=== PATIENT | male | born 1985 | race Caucasian/White ===

== ENCOUNTER 2018-05-26 19:43 | Emergency (ER) | payer SELFPAY ==
[~2018-05-26] VITALS: Ht 175.3 cm; Wt 86.4 kg
[~2018-05-26 19:43] MED LIST: NOCURR
[2018-05-26] MEDS ORDERED: IBUPROFEN 600 MG TABLET PO ONE (22:15)
[2018-05-26] MEDS ORDERED: DEXAMETHASONE 4 MG TABLET PO ONE (22:15)
[2018-05-26] MEDS ORDERED: PENICILLIN G BENZATHINE LA 1,200,000 UNITS/2 ML SYRINGE IM ONE (23:30)
[2018-05-26 23:37] VITALS: BP 134/80
== END 2018-05-26 23:42 | disposition home or self-care (01) ==
LOC: EMS 19:43
DX: J02.9 Acute pharyngitis, unspecified (principal); F17.210 Nicotine dependence, cigarettes, uncomplicated
CPT/HCPCS: 87430; 96372; 99283; J0561; J8540

== ENCOUNTER 2024-01-26 10:36 | Emergency (ER) | payer MEDICAID ==
[~2024-01-26] VITALS: Ht 172.7 cm; Wt 95.5 kg
[2024-01-26 10:47] VITALS: BP 132/83; PULSE 98; RESP 18; TEMP 98.8; O2SAT 99
[2024-01-26 11:30] LABS: COVID AG,FIA SOURCE NASAL SWAB
[2024-01-26 12:07] LABS: SARS-COV2 (COVID) ANTIGEN,FIA Negative (Negative)
[2024-01-26 12:08] LABS: INFLUENZA TYPE A NEGATIVE FOR TYPE A (NEGATIVE); INFLUENZA TYPE B NEGATIVE FOR TYPE B (NEGATIVE)
[2024-01-26 12:24] LABS: RAPID GROUP A STREP NEGATIVE (NEGATIVE)
[2024-01-26] MEDS: ACETAMINOPHEN 325 MG TABLET PO ONE (13:01)
[2024-01-26] MEDS: DEXAMETHASONE 4 MG TABLET PO ONE (13:02)
[2024-01-26] MEDS: IBUPROFEN 400 MG TABLET PO ONE (13:02)
== END 2024-01-26 13:11 | disposition home or self-care (01) ==
LOC: EMS 10:36
DX: J02.9 Acute pharyngitis, unspecified (principal); R09.81 Nasal congestion; F17.210 Nicotine dependence, cigarettes, uncomplicated
CPT/HCPCS: 99284; 87426; 87430; 87804; J8540; Z7502; Z7610

== ENCOUNTER 2024-03-12 14:12 | Emergency (ER) | payer MEDICAID, OTHER ==
[~2024-03-12] VITALS: Ht 170.2 cm; Wt 97.7 kg
[~2024-03-12 14:12] MED LIST changes: -NOCURR; +RISP3TAB77 PO
[2024-03-12 14:41] VITALS: TEMP 98.7
[2024-03-12 15:04] LABS: COVID AG,FIA SOURCE NASAL SWAB
[2024-03-12 15:31] LABS: SARS-COV2 (COVID) ANTIGEN,FIA Negative (Negative)
[2024-03-12 15:33] LABS: INFLUENZA TYPE A NEGATIVE FOR TYPE A (NEGATIVE); INFLUENZA TYPE B NEGATIVE FOR TYPE B (NEGATIVE)
[2024-03-12 15:37] LABS: BASOPHILS % (AUTO) 0.2 % (0.0-2.0); EOSINOPHILS % (AUTO) 0.2 % (1.0-6.0); HEMATOCRIT 47.2 % (41-53); HEMOGLOBIN 15.6 g/dL (13.5-17.5); LYMPHOCYTES # (AUTO) 0.7 K/uL (1.0-4.8); LYMPHOCYTES % (AUTO) 5.9 % (22.0-44.0); MEAN CORPUSCULAR HEMOGLOBIN 29.1 pg (26.0-34.0); MEAN CORPUSCULAR HGB CONC 33.2 G/dL (31.0-37.0); MEAN CORPUSCULAR VOLUME 88 fL (80-100); MONOCYTES # (AUTO) 0.5 K/uL (0.1-1.0); MONOCYTES % (AUTO) 4.9 % (2.0-9.0); NEUTROPHILS # (AUTO) 9.9 K/uL (1.8-7.7); PLATELET COUNT (AUTO) 200 K/uL (150-450); RED BLOOD CELL COUNT(AUTO) 5.37 MIL/uL (4.50-5.90); RED CELL DISTRIBUTION WIDTH 13.1 % (11.5-14.5); WHITE BLOOD COUNT (AUTO) 11.1 K/uL (4.5-11.0)
[2024-03-12 15:42] LABS: NEUTROPHILS % (AUTO) 88.8 % (40.0-70.0)
[2024-03-12 15:52] LABS: ANION GAP 8 mmol/L (8-16); CARBON DIOXIDE 27 mmol/L (22-29); CHLORIDE 102 mmol/L (98-107); CREATININE 0.95 mg/dL (0.60-1.30); GLUCOSE,RANDOM 117 mg/dL (70-110); POTASSIUM 4.4 mmol/L (3.5-5.1); SODIUM SERUM 137 mmol/L (136-145); UREA NITROGEN, BLOOD 8 mg/dL (7-18)
[2024-03-12 15:53] LABS: CALCIUM, TOTAL 8.3 mg/dL (8.8-10.5); GLOMERULAR FILTR. RATE CALC > 60 mL/min (>60)
[2024-03-12 15:55] LABS: TROPONIN I-HIGH SENSITIVITY 4 ng/L (<76)
[2024-03-12 15:58] LABS: ALANINE AMINOTRANSFERASE 48 U/L (12-78); ALBUMIN 3.7 g/dL (3.4-5.0); ALKALINE PHOSPHATASE 91 U/L (46-116); ASPARTATE AMINOTRANSFERASE 28 U/L (15-37); BILIRUBIN,TOTAL 0.5 mg/dL (0.1-1.0); TOTAL PROTEIN, SERUM 6.9 g/dL (6.4-8.2)
[2024-03-12] MEDS: LORazepam 1 MG TABLET PO ONE (16:00)
[2024-03-12] MEDS: SODIUM CHLORIDE 0.9% 1,000 ML IV ONE ×2 (16:00→17:47)
[2024-03-12] MEDS: ACETAMINOPHEN 500 MG TABLET PO ONE (16:00)
[2024-03-12 16:04] LABS: PLATELET MORPHOLOGY COMMENT LARGE PLTS PRESENT; RBC MORPHOLOGY COMMENT NORMAL RBC MORPH
[2024-03-12] MEDS: LORazepam 2 MG/ML VIAL IVP ONE (17:47)
[2024-03-12 18:47] VITALS: BP 124/66; PULSE 105; RESP 16; O2SAT 98
== END 2024-03-12 19:31 | disposition home or self-care (01) ==
LOC: EMS 14:22
DX: S62.102A Fracture of unspecified carpal bone, left wrist, initial encounter for closed fracture (principal); R53.1 Weakness; F41.9 Anxiety disorder, unspecified; F20.9 Schizophrenia, unspecified; F31.9 Bipolar disorder, unspecified; F17.210 Nicotine dependence, cigarettes, uncomplicated; Z20.822 Contact with and (suspected) exposure to COVID-19; Z65.3 Problems related to other legal circumstances; X58.XXXA Exposure to other specified factors, initial encounter; Y93.89 Activity, other specified; Y92.89 Other specified places as the place of occurrence of the external cause; Y99.8 Other external cause status
CPT/HCPCS: 99285; 96374; 96361; 87426; 80048; 80076; 84484; 85025; 87804; 36415; 73110; 29125; 93005; J2060; J7030